=== PATIENT | male | born 1995 | race Caucasian/White ===

== ENCOUNTER 2021-12-30 12:53 | Emergency (ER) | payer SELFPAY ==
[2021-12-30] MEDS ORDERED: NA CHLORIDE 0.9% 1,000 ML ONE (13:14)
[2021-12-30] MEDS ORDERED: hydrOXYzine HCL 25 MG TAB ONE (13:27)
[2021-12-30 13:33] LABS: Absolute Lymphocytes (CBC) 2.6 K/uL (0.7-4.9); Hematocrit 43.6 % (39.6-49.0); Lymphocytes % 34.9 % (15.3-44.8); MPV 7.3 fL (7.6-11.3); RBC Red Blood Cell Count 5.21 M/uL (4.33-5.43)
[2021-12-30 13:59] LABS: ALT/SGPT 28 U/L (12-78); AST/SGOT 11 U/L (15-37); Albumin 4.1 g/dL (3.4-5.0); Alkaline Phosphatase 70 U/L (45-117); BUN Blood Urea Nitrogen 14 mg/dL (7-18); Bicarbonate 27 mmol/L (21-32); Bilirubin Direct < 0.1 mg/dL (0-0.2); Bilirubin Total 0.3 mg/dL (0.2-1.0); Glucose Level 110 mg/dL (74-106); Magnesium 2.2 mg/dL (1.8-2.4); Potassium 4.2 mmol/L (3.5-5.1); Protein, Total 7.6 g/dL (6.4-8.2); Sodium Level 143 mmol/L (136-145); Troponin High Sensitivity < 3.00 pg/mL (<58.9)
--- NOTE | 2021-12-30 14:02 | RAD REPORT ---
EXAM DESCRIPTION: Asiya Single View12/30/2021 1:36 pm CLINICAL HISTORY: Syncope COMPARISON: none FINDINGS: The lungs appear clear of acute infiltrate. The heart is normal size IMPRESSION: No acute abnormalities displayed
--- NOTE | 2021-12-30 14:34 | EDPHYS ---
Physician Documentation [facility] Name: Angel Luis San Age: 26 yrs Sex: Male : 1995 Arrival Date: 12/30/2021 Time: 13:04 Bed 23 Private MD: ED Physician Braxton Alfaro HPI: 12/30 14:34 This 26 yrs old Male presents to ER via EMS with complaints of Syncope. jr8 14:34 The patient has experienced syncope, collapsed. Onset: The symptoms/episode jr8 began/occurred acutely, today. Duration: This was a single episode. Context: occurred Rehab facility. Associated signs and symptoms: Pertinent positives: dizziness. Current symptoms: Currently, the patient is not experiencing any symptoms, the patient feels back to baseline, no decreased level of consciousness, no confusion, no dysphasia, no headache, no paralysis, no visual changes. The patient has experienced similar episodes in the past, a few times. The patient has not recently seen a physician. Patient stated that he is currently undergoing recovery at [facility] for opioid addiction. Last use was about 1 week ago. Since then has had mild anxiety. Stated that he is also been dizzy and has passed out a couple times when moving from a laying to standing position. Happened again today and was brought to hospital for further evaluation. Historical: - Allergies: 13:06 No Known Allergies; ss7 - Home Meds: 13:06 None [Active]; ss7 - PMHx: 13:06 Asthma; ss7 - PSHx: 13:06 left ankle screws and plates; ss7 - Immunization history:: Adult Immunizations Client reports having NOT received the Covid vaccine. Flu vaccine is not up to date. - Social history:: Smoking status: Patient reports the use of cigarette tobacco products, smokes one pack cigarettes per day. Patient uses street drugs, Fentanyl, IV drugs. ROS: 14:34 Eyes: Negative for injury, pain, redness, and discharge, ENT: Negative for injury, jr8 pain, and discharge, Neck: Negative for injury, pain, and swelling, Cardiovascular: Negative for chest pain, palpitations, and edema, Respiratory: Negative for shortness of breath, cough, wheezing, and pleuritic chest pain, Abdomen/GI: Negative for abdominal pain, nausea, vomiting, diarrhea, and constipation, Back: Negative for injury and pain, MS/Extremity: Negative for injury and deformity, Skin: Negative for injury, rash, and discoloration. 14:34 Neuro: Positive for syncope. Exam: 14:34 Constitutional: This is a well developed, well nourished patient who is awake, alert, jr8 and in no acute distress. Neck: Trachea midline, no thyromegaly or masses palpated, and no cervical lymphadenopathy. Supple, full range of motion without nuchal rigidity, or vertebral point tenderness. No Meningismus. Cardiovascular: Regular rate and rhythm with a normal S1 and S2. No gallops, murmurs, or rubs. Normal PMI, no JVD. No pulse deficits. Respiratory: Lungs have equal breath sounds bilaterally, clear to auscultation and percussion. No rales, rhonchi or wheezes noted. No increased work of breathing, no retractions or nasal flaring. Abdomen/GI: Soft, non-tender, with normal bowel sounds. No distension or tympany. No guarding or rebound. No evidence of tenderness throughout. Back: No spinal tenderness. No costovertebral tenderness. Full range of motion. Skin: Warm, dry with normal turgor. Normal color with no rashes, no lesions, and no evidence of cellulitis. MS/ Extremity: Pulses equal, no cyanosis. Neurovascular intact. Full, normal range of motion. Neuro: Awake and alert, GCS 15, oriented to person, place, time, and situation. Cranial nerves II-XII grossly intact. Motor strength 5/5 in all extremities. Sensory grossly intact. Cerebellar exam normal. Normal gait. Vital Signs: 13:04 BP 108 / 78; Pulse 94; Resp 18; Pulse Ox 100% ; Weight 81.65 kg; Height 6 ft. 2 in. 7 (187.96 cm); 14:18 BP 133 / 78 LA Supine; Pulse 97 LA; ss7 14:18 BP 118 / 74 LA Sitting; Pulse 98; 7 14:18 BP 111 / 74 LA Standing; Pulse 111; ss7 13:04 Body Mass Index 23.11 (81.65 kg, 187.96 cm) [facility] MDM: 13:07 Patient medically screened. [facility] 14:34 Data reviewed: vital signs, nurses notes, lab test result(s), EKG, radiologic studies, [facility] plain films. Data interpreted: Pulse oximetry: on room air is 100 %. Interpretation: normal. Counseling: I had a detailed discussion with the patient and/or guardian regarding: the historical points, exam findings, and any diagnostic results supporting the discharge/admit diagnosis, lab results, radiology results, the need for outpatient follow up, a family practitioner, to return to the emergency department if symptoms worsen or persist or if there are any questions or concerns that arise at home. Response to treatment: the patient's symptoms have markedly improved after treatment, patient is well hydrated. No longer feels dizzy. 12/30 13:08 Order name: Basic Metabolic Panel; Complete Time: 14:00 12/30 13:08 Order name: CBC with Diff; Complete Time: 13:37 12/30 13:08 Order name: LFT's; Complete Time: 14:00 12/30 13:08 Order name: Magnesium; Complete Time: 14:01 12/30 13:08 Order name: Troponin HS; Complete Time: 14:01 12/30 13:08 Order name: XRAY Chest (1 view); Complete Time: 14:04 12/30 13:08 Order name: EKG; Complete Time: 13:09 12/30 13:08 Order name: Cardiac monitoring; Complete Time: 13:09 12/30 13:08 Order name: EKG - Nurse/Tech; Complete Time: 13:12/30 13:08 Order name: IV Saline Lock; Complete Time: 13:12/30 13:08 Order name: Labs collected and sent; Complete Time: 13:10 12/30 13:08 Order name: O2 Per Protocol; Complete Time: 13:12/30 13:08 Order name: O2 Sat Monitoring; Complete Time: 13:10 12/30 14:04 Order name: Orthostatics; Complete Time: 14:19 Administered Medications: 13:14 Drug: NS 0.9% 1000 ml Route: IV; Rate: 1 bolus; Site: right forearm; ss7 14:15 Follow up: Response: No adverse reaction; IV Status: Completed infusion ss7 13:27 Drug: hydrOXYzine 50 mg Route: PO; ss7 14:37 Follow up: Response: No adverse reaction ss7 Disposition: 15:51 Co-signature as Attending Physician, Braxton Alfaro DO I agree with the assessment and ms3 plan of care. Disposition Summary: 12/30/21 14:33 Discharge Ordered Location: Home jr8 Problem: new jr8 Symptoms: have improved jr8 Condition: Stable jr8 Diagnosis - Syncope jr8 - Orthostatic hypotension jr8 Followup: jr8 - With: Private Physician - When: 2 - 3 days - Reason: Recheck today's complaints, Continuance of care, Re-evaluation by your physician Discharge Instructions: - Discharge Summary Sheet jr8 - Orthostatic Hypotension jr8 Forms: - Medication Reconciliation Form jr8 - Thank You Letter jr8 - Antibiotic Education jr8 - Prescription Opioid Use jr8 Signatures: Dispatcher [employer] EDMS Ihsan Segovia PA PA jr8 Braxton Alfaro DO DO ms3 Lori Leong, RN RN ss7
--- NOTE | 2021-12-30 14:34 | ER ---
Nurse's Notes [facility] Name: Angel Luis San Age: 26 yrs Sex: Male : 1995 Arrival Date: 12/30/2021 Time: 13:04 Bed 23 Private MD: Diagnosis: Syncope;Orthostatic hypotension Presentation: 12/30 13:04 Chief complaint: Patient states: EMS called due to syncopal episode and questionable ss7 seizure like activity that involved some shaking and pupil dilation. Coronavirus screen: Vaccine status: Patient reports being unvaccinated. Ebola Screen: No symptoms or risks identified at this time. Initial Sepsis Screen: Does the patient meet any 2 criteria? No. Patient's initial sepsis screen is negative. Does the patient have a suspected source of infection? No. Patient's initial sepsis screen is negative. Risk Assessment: Do you want to hurt yourself or someone else? Patient reports no desire to harm self or others. Onset of symptoms was December 30, 2021. 13:04 Method Of Arrival: EMS: [place] [id number] 13:04 Acuity: NEIL 3 ss7 Triage Assessment: 13:06 General: Appears in no apparent distress. Behavior is calm, cooperative, appropriate ss7 for age. Pain: Denies pain. EENT: No deficits noted. 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 Gait is steady, Speech is normal, Facial symmetry appears normal. Cardiovascular: Heart tones S1 S2 Rhythm is sinus tachycardia. Respiratory: Breath sounds are clear bilaterally. GI: Bowel sounds present X 4 quads. : No deficits noted. Derm: No deficits noted. Musculoskeletal: No deficits noted. Historical: - Allergies: 13:06 No Known Allergies; ss7 - Home Meds: 13:06 None [Active]; ss7 - PMHx: 13:06 Asthma; ss7 - PSHx: 13:06 left ankle screws and plates; ss7 - Immunization history:: Adult Immunizations Client reports having NOT received the Covid vaccine. Flu vaccine is not up to date. - Social history:: Smoking status: Patient reports the use of cigarette tobacco products, smokes one pack cigarettes per day. Patient uses street drugs, Fentanyl, IV drugs. Screenin:08 Abuse screen: Denies threats or abuse. Nutritional screening: No deficits noted. ss7 Tuberculosis screening: No symptoms or risk factors identified. Fall Risk IV access (20 points). Assessment: 13:45 Reassessment: Pt request to go out and smoke. Informed he is enable to. Pt vu and ss7 states he is anxious and hates hospitals. SAMANTHA Segovia informed. Pt notified the need to finish IV fluids and remainder of lab work to return. PT VU. . Vital Signs: 13:04 BP 108 / 78; Pulse 94; Resp 18; Pulse Ox 100% ; Weight 81.65 kg; Height 6 ft. 2 in. ss7 (187.96 cm); 14:18 BP 133 / 78 LA Supine; Pulse 97 LA; ss7 14:18 BP 118 / 74 LA Sitting; Pulse 98; ss7 14:18 BP 111 / 74 LA Standing; Pulse 111; ss7 13:04 Body Mass Index 23.11 (81.65 kg, 187.96 cm) ss7 ED Course: 13:04 Patient arrived in ED. ss7 13:06 Triage completed. ss7 13:06 Arm band placed on left wrist. EKG completed in triage. Results shown to MD. ss7 13:07 Ihsan Segovia PA is PHCP. jr8 13:07 Braxton Alfaro DO is Attending Physician. jr8 13:08 Patient has correct armband on for positive identification. Bed in low position. Call ss7 light in reach. Side rails up X2. Seizure precautions initiated. 13:08 No provider procedures requiring assistance completed. Inserted saline lock: 20 gauge ss7 in right forearm, using aseptic technique. 13:09 Lori Leong, RN is Primary Nurse. ss7 13:10 Basic Metabolic Panel Sent. ss7 13:10 CBC with Diff Sent. ss7 13:10 LFT's Sent. ss7 13:10 Magnesium Sent. ss7 13:10 Troponin HS Sent. ss7 13:21 Basic Metabolic Panel Sent. ss7 13:21 CBC with Diff Sent. ss7 13:36 XRAY Chest (1 view) In Process Unspecified. EDMS 14:38 IV discontinued, intact. ss7 Administered Medications: 13:14 Drug: NS 0.9% 1000 ml Route: IV; Rate: 1 bolus; Site: right forearm; ss7 14:15 Follow up: Response: No adverse reaction; IV Status: Completed infusion 7 13:27 Drug: hydrOXYzine 50 mg Route: PO; 7 14:37 Follow up: Response: No adverse reaction 7 Outcome: 14:33 Discharge ordered by MD. ch 14:37 Discharged to home ambulatory. 7 14:37 Condition: good 14:37 Discharge instructions given to patient, Instructed on discharge instructions, follow up and referral plans. Demonstrated understanding of instructions, follow-up care. 14:44 Patient left the ED. 7 Signatures: Dispatcher [employer] EDMS Ihsan Segovia PA PA jr8 Smith, Shana, RN RN ss7
[2021-12-30 14:51] VITALS: O2SAT 100
[2021-12-30 14:53] VITALS: BP 111/74
--- NOTE | 2022-01-04 08:36 | EKG ---
Test Date: 2021-12-30 Test Time: 13:02:26 [employer]: ZEYAD MEASUREMENT RESULTS: Intervals: Rate: 95 NM: 124 QRSD: 84 QT: 328 QTc: 412 [place]: P: 74 NM: 124 QRS: 88 T: 62 INTERPRETIVE STATEMENTS: Normal sinus rhythm Possible Left atrial enlargement Borderline ECG No previous ECG available for comparison Electronically Signed On 01-04-22 08:24:38 CDT by Adarsh Aguilar
== END 2021-12-30 14:44 | disposition home or self-care (01) ==
LOC: ER 12:53
DX: I95.1 Orthostatic hypotension (principal); F11.20 Opioid dependence, uncomplicated
CPT/HCPCS: 36415; 71045; 80048; 80076; 83735; 84484; 85025; 93005; 96360; 99284; J7030